=== PATIENT | male | born 1945 | race Caucasian/White ===

== ENCOUNTER 2017-08-15 08:21 | Day surgery (SDC) | payer MEDICARE, BC ==
[2017-08-09 15:55] VITALS: BMI 31.3
[~2017-08-15 08:21] MED LIST: MOXIFLOXACIN HCL 0.5% DROPS 3 ML BTL OP ONE; TETRACAINE 0.5% OPHTH (PF) DROPS 4 ML BTL OP ONE; TIMOLOL 0.5% OPHTH SOLN (PF) 0.2 ML DROPERETTE OP ONE
[2017-08-15] MEDS: PHENYLEPHRINE 2.5% OPHTH DRP 2ML OP NR ×3 (08:55→09:08)
[2017-08-15] MEDS: CYCLOPENTOLATE 1% OPHTH SOLN 2 ML BTL OP ONE ×3 (08:58→09:11)
[2017-08-15 09:19] LABS: Glucose,Whole Blood 118 mg/dL (75-99)
[2017-08-15 09:20] VITALS: RESP 16; TEMP 97.9
[2017-08-15] MEDS ORDERED: LIDOCAINE 1% 20 ML VIAL (10MG/ML) FOR IV START INTRADERMA ONE (09:20)
[2017-08-15] MEDS: LACTATED RINGERS 1,000 ML IV SCH ×2 (09:20→10:04)
[2017-08-15] MEDS ORDERED: fentaNYL (PF) 50 MCG/ML 2 ML AMP ONE (10:06)
[2017-08-15] MEDS ORDERED: EPINEPHrine (PF) 0.3 ML in BALANCED SALT IRRIG SOLN COMB2 500 ML IRRIGATION ONE (10:07)
[2017-08-15] MEDS ORDERED: LIDOCAINE 1% (PF) 10MG/ML VIAL MISCELLANE ONE (10:16)
[2017-08-15] MEDS ORDERED: HYALURONATE SODIUM INTRAOCULAR 1 EACH SYRINGE (12MG/ML) INTRAOCULA ONE (10:16)
[2017-08-15] MEDS ORDERED: BALANCED SALT IRRIG SOLN COMB2 15 ML IRRIG.SOLN IRRIGATION ONE (10:16)
--- NOTE | 2017-08-15 10:32 | P.OP ---
Date of Procedure: 08/15/17 Preoperative Diagnosis: NS & CS Postoperative Diagnosis: same Procedure(s) Performed: PIOL, OS Implants: PCB00 26.50 Anesthesia: MAC Surgeon: Carlos Celeste Estimated Blood Loss (ml): 0 Pathology: none sent Condition: stable Disposition: same day Indications for Procedure: blurry vision Operative Findings: No complications
[2017-08-15 10:57] VITALS: BP 142/62; PULSE 56
--- NOTE | 2017-08-16 11:50 | OP ---
OPERATIVE REPORT DATE OF SURGERY: August 15, 2017 BILINGUAL OFFICE ASSISTANT:: PREOPERATIVE DIAGNOSES:: Nuclear sclerosis and cortical sclerosis. POSTOPERATIVE DIAGNOSES:: Nuclear sclerosis and cortical sclerosis OPERATION:: Phacoemulsification of cataract and intraocular lens implant of the left eye. ESTIMATED BLOOD LOSS:: Zero. SPECIMEN TAKEN:: None. NARRATIVE:: After obtaining the appropriate consent, the patient was brought to the Operating Room where the patient was placed under cardiac monitoring and prepped and draped in the usual sterile manner. At the 5 o'clock position a 15 degree super sharp blade was used to create a paracentesis followed by instillation of 1% Xylocaine MPF 50:50 mix with BSS into the anterior chamber. This was followed by Amvisc to stabilize the anterior chamber. At the 3 o'clock position a self-sealing corneal flap incision was created using 2.8 mm angle keratome. A cystatome was used to initiate a continuous tear capsulorrhexis which was completed with the Utrata forceps. A Binkhorst cannula was used to hydrodissect the lens nucleus followed by hydrodelineation. Phacoemulsification of the lens was performed utilizing phacochop in 11.09 seconds at 4.98% power. The remaining cortical material was removed using the irrigation aspiration mode followed by additional 1% Xylocaine MPF into the anterior chamber followed by viscoelastic to stabilize the capsular bag. An CANDIDO PCB00 26.5 diopters posterior chamber lens was placed into the capsular bag without difficulty. The remaining viscoelastic material was removed from the anterior chamber with the irrigation/aspiration. Balanced salt solution was used to normalize the intraocular pressure. The incision was checked for watertight integrity. The patient then received two drops of 0.5% timolol followed by two drops Vigamox, was lightly patched and shielded in the usual manner. There were no complications from the procedure. The patient tolerated the procedure well and was returned to recovery in good condition. MMODL / IJN: [id number] /
== END 2017-08-15 11:19 | disposition home or self-care (01) ==
LOC: OR 08:21
PROVIDERS: ATTEND Ophthalmology
DX: H25.13 Age-related nuclear cataract, bilateral (principal); H25.013 Cortical age-related cataract, bilateral; H35.3132 Nonexudative age-related macular degeneration, bilateral, intermediate dry stage; H04.129 Dry eye syndrome of unspecified lacrimal gland; H53.022 Refractive amblyopia, left eye; H52.03 Hypermetropia, bilateral; H52.223 Regular astigmatism, bilateral; H52.4 Presbyopia; E11.9 Type 2 diabetes mellitus without complications; I48.91 Unspecified atrial fibrillation; E07.9 Disorder of thyroid, unspecified; I10 Essential (primary) hypertension; K21.9 Gastro-esophageal reflux disease without esophagitis; Z85.72 Personal history of non-Hodgkin lymphomas; Z79.01 Long term (current) use of anticoagulants; Z79.84 Long term (current) use of oral hypoglycemic drugs; Z79.899 Other long term (current) drug therapy
CPT/HCPCS: 66984; C1780; J0171; J3010; J2001

== ENCOUNTER 2017-09-05 09:58 | Day surgery (SDC) | payer MEDICARE, BC ==
[2017-08-28 11:59] VITALS: BMI 31.3
[~2017-09-05 09:58] MED LIST changes: +LACTATED RINGERS 1,000 ML IV SCH; +LIDOCAINE 1% 20 ML VIAL (10MG/ML) FOR IV START INTRADERMA PRN
[2017-09-05] MEDS: CYCLOPENTOLATE 1% OPHTH SOLN 2 ML BTL OP ONE ×3 (11:53→12:15)
[2017-09-05 11:56] VITALS: RESP 18; TEMP 97.9
[2017-09-05] MEDS: PHENYLEPHRINE 2.5% OPHTH DRP 2ML OP NR ×3 (11:58→12:21)
[2017-09-05 12:17] LABS: Glucose,Whole Blood 115 mg/dL (75-99)
[2017-09-05] MEDS ORDERED: fentaNYL (PF) 50 MCG/ML 2 ML AMP ONE (12:59)
[2017-09-05] MEDS ORDERED: MIDAZOLAM 2 MG/2 ML VIAL ONE (12:59)
[2017-09-05] MEDS ORDERED: HYALURONATE SODIUM INTRAOCULAR 1 EACH SYRINGE (12MG/ML) INTRAOCULA ONE (13:05)
[2017-09-05] MEDS ORDERED: BALANCED SALT IRRIG SOLN COMB2 15 ML IRRIG.SOLN INTRAOCULA ONE (13:05)
[2017-09-05] MEDS ORDERED: LIDOCAINE 1% (PF) 10MG/ML VIAL SQ ONE (13:06)
[2017-09-05] MEDS ORDERED: EPINEPHrine (PF) 0.3 ML in BALANCED SALT IRRIG SOLN COMB2 500 ML IRRIGATION ONE (13:08)
--- NOTE | 2017-09-05 13:27 | P.OP ---
Date of Procedure: 09/05/17 Preoperative Diagnosis: NS & CS Postoperative Diagnosis: same Procedure(s) Performed: PIOL, OD Implants: PCB00 25.50 Anesthesia: MAC Surgeon: Carlos Celeste Estimated Blood Loss (ml): 0 Pathology: none sent Condition: stable Disposition: same day Indications for Procedure: blurry vision Operative Findings: no complications
--- NOTE | 2017-09-05 13:54 | OP ---
OPERATIVE REPORT DATE OF SERVICE: 09/05/2017. PROCEDURE: Phacoemulsification of cataract and intraocular lens implant of the right eye. PREOPERATIVE DIAGNOSIS: Nuclear sclerosis, cortical sclerosis. POSTOPERATIVE DIAGNOSIS: Nuclear sclerosis, cortical sclerosis. ESTIMATED BLOOD LOSS: Zero. SPECIMEN TAKEN:: None. NARRATIVE:: After obtaining the appropriate consent, the patient was brought to the Operating Room where the patient was placed under cardiac monitoring and prepped and draped in the usual sterile manner. At the 11 o'clock position a 15 degree super sharp blade was used to create a paracentesis followed by instillation of 1% Xylocaine MPF 50:50 mix with BSS into the anterior chamber. This was followed by to stabilize the anterior chamber. At the 9 o'clock position a self-sealing corneal flap incision was created using 2.8 mm angle keratome. A cystatome was used to initiate a continuous tear capsulorrhexis which was completed with the Utrata forceps. A Binkhorst cannula was used to hydrodissect the lens nucleus followed by hydrodelineation. Phacoemulsification of the lens was performed utilizing phacochop in 15.5 seconds at 9% power. The remaining cortical material was removed using the irrigation aspiration mode followed by additional 1% Xylocaine MPF into the anterior chamber followed by viscoelastic Amvisc to stabilize the capsular bag. An CANDIDO PCB 0025.5 Diopter posterior chamber lens was placed into the capsular bag without difficulty. The remaining viscoelastic material was removed from the anterior chamber with the irrigation/aspiration. Balanced salt solution was used to normalize the intraocular pressure. The incision was checked for watertight integrity. The patient then received two drops of 0.5% timolol followed by two drops Vigamox, was lightly patched and shielded in the usual manner. There were no complications from the procedure. The patient tolerated the procedure well and was returned to recovery in good condition. MMODL / IJN: [id number] /
[2017-09-05 14:01] VITALS: BP 160/72; PULSE 41
== END 2017-09-05 14:30 | disposition home or self-care (01) ==
LOC: OR 09:58
PROVIDERS: ATTEND Ophthalmology
DX: H25.11 Age-related nuclear cataract, right eye (principal); H35.3132 Nonexudative age-related macular degeneration, bilateral, intermediate dry stage; H52.32 Aniseikonia; H25.011 Cortical age-related cataract, right eye; H04.129 Dry eye syndrome of unspecified lacrimal gland; H53.022 Refractive amblyopia, left eye; H52.03 Hypermetropia, bilateral; H52.223 Regular astigmatism, bilateral; H52.4 Presbyopia; K21.9 Gastro-esophageal reflux disease without esophagitis; I10 Essential (primary) hypertension; I48.91 Unspecified atrial fibrillation; E78.5 Hyperlipidemia, unspecified; E11.9 Type 2 diabetes mellitus without complications; E07.9 Disorder of thyroid, unspecified; Z96.1 Presence of intraocular lens; Z79.01 Long term (current) use of anticoagulants; Z79.84 Long term (current) use of oral hypoglycemic drugs; Z79.899 Other long term (current) drug therapy; Z85.72 Personal history of non-Hodgkin lymphomas
CPT/HCPCS: 66984; C1780; J2250; J0171; J3010; J2001

== ENCOUNTER → 2017-10-29 | Day surgery (SDC) | payer MEDICARE, BC ==
[2017-10-25 10:11] VITALS: BMI 31.3
[~2017-10-29] MED LIST changes: +LIDOCAINE 1% 20 ML VIAL (10MG/ML) FOR IV START INTRADERMA ONE; -LIDOCAINE 1% 20 ML VIAL (10MG/ML) FOR IV START INTRADERMA PRN; -MOXIFLOXACIN HCL 0.5% DROPS 3 ML BTL OP ONE; +PROPOFOL 10 MG/ML 20 ML VIAL IV ONE; -TETRACAINE 0.5% OPHTH (PF) DROPS 4 ML BTL OP ONE; -TIMOLOL 0.5% OPHTH SOLN (PF) 0.2 ML DROPERETTE OP ONE
[2017-10-29 07:54] VITALS: RESP 16; TEMP 97.9
[2017-10-29 08:07] LABS: Glucose,Whole Blood 104 mg/dL (75-99)
--- NOTE | 2017-10-29 09:13 | P.PCN ---
Date of Procedure: 10/29/17 Procedure(s) Performed: Procedure: Esophagogastroduodenoscopy and biopsy. Preoperative diagnosis: Chronic reflux and history of Dobbs's esophagus. Postoperative diagnosis: 1. Sliding hiatal hernia and short Dobbs's segment multiple biopsies obtained to rule out dysplasia. 2. Gastritis with no obvious ulcers or any endoscopic findings of his previously treated B-cell lymphoma. Preparation and sedation: Was provided by anesthesia. Brief clinical history: The patient is a 71-year-old male who was diagnosed in April 2011 with B-cell lymphoma for which he was treated with radiation and chemotherapy. At that time, he had ulcerations at the junction between the antrum and the gastric body. In addition, the patient has history of Dobbs's esophagus and his last upper endoscopy for surveillance was in October 2015. He continues to take omeprazole with occasional heartburns. No dysphagia or other alarm symptoms. Procedure: With the patient on his left lateral decubitus position and after informed consent and adequate sedation, I passed the Olympus-GIF 160 video upper endoscope through the cricopharyngeus down the esophagus. GE junction was irregular and it started at around 29-30 cm from the incisors. The tubular esophagus continued for another 3 or 4 cm, then a sliding hiatal hernia is encountered as previously described. The esophagus did not show any ulcers or strictures. The endoscope was then passed into the stomach which was insufflated with air and inspected in detail including the retroflex view in the cardia. There was mottling and erythema and some areas of friability in the antrum but no ulcers. Specifically, the area where he had ulcerations at the time of his diagnosis with lymphoma at the junction between the antrum and gastric body did not show any ulcers. I obtained multiple biopsies from the antrum as well as from from the Dobbs's esophagus. Pyloric channel, duodenal bulb, post bulbar area and descending duodenum appeared within normal limits. Disposition: The patient tolerated the procedure well. Plan: We will await pathology results. I anticipate repeating this exam in 2 years or sooner depending on his course and biopsy results. He will follow up with you as planned.
[2017-10-29 09:29] VITALS: BP 134/74; PULSE 43
== END ==
LOC: ORWHC2ENDO 07:13
DX: K22.711 Barrett's esophagus with high grade dysplasia (principal); K44.9 Diaphragmatic hernia without obstruction or gangrene; K29.70 Gastritis, unspecified, without bleeding; K21.9 Gastro-esophageal reflux disease without esophagitis; Z85.72 Personal history of non-Hodgkin lymphomas; Z92.3 Personal history of irradiation; I10 Essential (primary) hypertension; E78.5 Hyperlipidemia, unspecified; I48.91 Unspecified atrial fibrillation; Z79.01 Long term (current) use of anticoagulants; G47.33 Obstructive sleep apnea (adult) (pediatric); E07.9 Disorder of thyroid, unspecified; E11.9 Type 2 diabetes mellitus without complications; Z79.84 Long term (current) use of oral hypoglycemic drugs; Z79.899 Other long term (current) drug therapy
CPT/HCPCS: 88305; 88342; 43239; J2704

== ENCOUNTER → 2020-12-18 | Outpatient (CLI) | payer MEDICARE ==
--- NOTE | 2020-12-20 06:38 | PE ---
EXAMINATION TYPE: PET CT fusion skull to thigh DATE OF EXAM: 12/18/2020 COMPARISON: NONE HISTORY: Recently diagnosed esophageal carcinoma. History of non-Hodgkin's lymphoma. TECHNIQUE: Following the intravenous administration of 13.91 mCi of F-18 FDG, whole body images are performed from the skull base to the midthigh. Images are reviewed on the computer in the coronal, a xial, and sagittal planes. Reconstructed rotating images are created on independent workstation and reviewed on the computer. A localization and attenuation correction CT is performed in conjunction with the PET scan. Blood glucose level was 135. SCAN: Initial Scan FINDINGS: SKULL BASE AND NECK: No suspicious hypermetabolic uptake. CHEST, MEDIASTINUM, AND HILAR REGION: Normal-sized thyroid with mild diffuse uptake. There is roughly 9 mm lower pole left thyroid nodule suspected on axial image 60 with mild hypermetabolic uptake, max SUV 3.26. Mild hypermetabolic uptake corresponding to prominent lymph nodes in the anterior superior mediastinum just below the thyroid gland, for reference there is right paratracheal 1.3 x 1.2 cm lym ph node axial image 63, max SUV is 5.28. For reference there is left paratracheal 10 x 9 mm lymph nod e axial image 67, max SUV is 4.68. Correlation with patient's history there is abnormal moderate concentric wall thickening in the esoph murphy, max SUV is 10.87 on axial image 92. Moderate-sized hiatal hernia is present. ABDOMEN AND PELVIS: Nonspecific diffuse bowel uptake. Normal excretion. No suspicious hypermetabolic uptake. OSSEOUS STRUCTURES: No suspicious hypermetabolic uptake. OTHER CT: Sqep-hh-fybakamy calcified plaque bilateral carotid bulb level. Severe three-vessel coronar y artery calcification and/or stents. Small degree of bilateral subareolar gynecomastia. Calcifications throughout the spleen consistent with products of old granulomatous disease. Moderate generalized fat replaced atrophy of the pancreas. Moderate calcified plaque of the aorta. Moderate to severe anterior eccentric wall thickening of the bladder. Enlarged prostate consistent with BPH. IMPRESSION: Known distal esophageal neoplasm. Possible lower pole left thyroid nodule with suspicious adjacent adenopathy. Clinical correlation and follow-up advised. Consider second primary. No metasta tic disease otherwise identified.
== END ==
LOC: RADPETMAIN 08:04
PROVIDERS: ATTEND Internal Medicine Hematology & Oncology
DX: C15.5 Malignant neoplasm of lower third of esophagus (principal); Z85.72 Personal history of non-Hodgkin lymphomas
CPT/HCPCS: 78815; A9552

== ENCOUNTER 2020-12-29 12:32 | Day surgery (SDC) | payer MEDICARE ==
[2020-12-29 13:35] LABS: Mean Platelet Volume 7.5; Platelet Count 317 k/uL (150-450)
[2020-12-29 13:39] VITALS: TEMP 98.2
[2020-12-29 13:40] LABS: Prothrombin Time 10.3 sec (9.0-12.0)
[2020-12-29 15:42] VITALS: BP 138/66; PULSE 71; RESP 18
--- NOTE | 2020-12-30 12:24 | US ---
ULTRASOUND GUIDED FNA AND CORE BIOPSY LEFT NECK LYMPH NODE: CLINICAL HISTORY: Left neck lymph node FINDINGS: The procedure was explained to the patient. The risks, complications, benefits and alternatives were discussed and any questions were answered. Informed consent was obtained. Patient was placed supin e on the ultrasound table and prepped and draped in the usual sterile fashion. Utilizing a 25 gauge needle, 3 passes were made into the left neck lymph node. An 18-gauge core biopsy sample was also ob tained. Patient was stable throughout the procedure. Pathology is pending. All elements of maximal barrier technique were utilized. IMPRESSION: 1. Successful ultrasound guided FNA and core biopsy left neck lymph node\mass.
--- NOTE | 2020-12-30 12:26 | CT ---
EXAMINATION TYPE: CT biopsy lymph node DATE OF EXAM: 12/29/2020 COMPARISON: NONE HISTORY: Left neck mass CT scan was obtained to attempt to get an additional sample of the requested mass within the left nec k lymph node. The lesion was not as well seen by CT scan and attempt was discontinued. IMPRESSION: 1. Discontinued CT-guided left neck lymph node biopsy.
== END 2020-12-29 15:35 | disposition home or self-care (01) ==
LOC: RADPROMAIN 12:32
PROVIDERS: ATTEND Internal Medicine Hematology & Oncology
DX: C15.5 Malignant neoplasm of lower third of esophagus (principal); C85.90 Non-Hodgkin lymphoma, unspecified, unspecified site
CPT/HCPCS: 36415; 38505; 76942; 77012; 82947; 85049; 85610; 88173; 88305

== ENCOUNTER 2021-03-10 17:16 | Emergency (ER) | payer MEDICARE ==
[2021-03-10 17:42] VITALS: BP 123/68; PULSE 69; RESP 16; TEMP 98.4
[2021-03-10 20:58] LABS: INR 1.9 (<1.2)
[2021-03-10 20:59] LABS: Prothrombin Time 18.8 sec (9.0-12.0)
--- NOTE | 2021-03-10 21:01 | US ---
EXAMINATION TYPE: US venous doppler duplex LE LT DATE OF EXAM: 03/10/2021 8:54 PM COMPARISON: NONE CLINICAL HISTORY: Left leg swelling/dx cancer. Left leg swelling. DX esophageal cancer- on chemo. Pat ient on coumadin. No hx of DVT. SIDE PERFORMED: Left TECHNIQUE: The lower extremity deep venous system is examined utilizing real time linear array sonog niru with graded compression, doppler sonography and color-flow sonography. VESSELS IMAGED: Common Femoral Vein Deep Femoral Vein Greater Saphenous Vein * Femoral Vein Popliteal Vein Small Saphenous Vein * Proximal Calf Veins (* superficial vessels) There is normal flow, compressibility, waveforms noted within the deep veins of the left lower extrem ity from the level of the knee centrally Left Leg: No evidence of DVT in veins imaged at this time. IMPRESSION: No evident deep venous thrombosis at the level of the knee or central to the left knee
--- NOTE | 2021-03-10 21:15 | ED ---
General Adult HPI - General Chief complaint: Extremity Problem,Nontraumatic Stated complaint: Lt Foot/Ankle Swelling Time Seen by Provider: 03/10/21 19:30 Source: patient Mode of arrival: ambulatory Limitations: no limitations - History of Present Illness Initial comments: 75-year-old male patient presents to the emergency department today for evaluation of left lower leg and foot swelling. Patient did see his primary doctor today they were concerned for possible blood clots they sent him in for further evaluation. Patient is currently receiving treatment for esophageal cancer including chemotherapy. He does take Coumadin, he did recently have a dosage decrease. Last INR was 2 weeks ago. Patient denies any pain to the leg. States he is able to ambulate without difficulty. Denies any redness to the calf. Denies fever or chills. Denies any chest pain or shortness of breath. Patient denies any recent rash, cough, abdominal pain, nausea, vomiting, diarrhea, constipation, back pain, numbness, tingling, dizziness, weakness, hematuria, dysuria, urinary urgency, urinary frequency, headache, visual changes, or any other complaints. - Related Data Home Medications Medication Instructions Recorded Confirmed Artificial Tears-Hypromellose 1 drop BOTH EYES BID 10/29/15 12/29/20 [Artificial Tear Drops] Levothyroxine Sodium [Synthroid] 112 mcg PO QAM 10/29/15 12/29/20 Lovastatin 20 mg PO HS 10/29/15 12/29/20 Metoprolol Succinate [Toprol XL] 12.5 mg PO QAM 10/29/15 12/29/20 Omeprazole 20 mg PO QAM 10/29/15 12/29/20 amLODIPine [Norvasc] 10 mg PO QAM 10/29/15 12/29/20 lisinopriL [Lisinopril] 20 mg PO DAILY 10/29/15 12/29/20 metFORMIN HCL [Glucophage] 850 mg PO BID 10/29/15 12/29/20 Ascorbic Acid [Vitamin C] 1,000 mg PO DAILY 12/21/20 12/29/20 Empagliflozin [Jardiance] 12.5 mg PO DAILY 12/21/20 12/29/20 Ergocalciferol [Vitamin D2 (1250 1.25 mg PO DAILY 12/21/20 12/29/20 Mcg = 54218 Iu)] Insulin Lispro [humaLOG Kwikpen] 1 unit SQ DAILY 12/21/20 12/29/20 Magnesium 500 mg PO DAILY 12/21/20 12/29/20 Selenium 100 mcg PO DAILY 12/21/20 12/29/20 Warfarin [Coumadin] 10 mg PO HS 12/21/20 12/29/20 Zinc Gluconate [Zinc] 50 mg PO DAILY 12/21/20 12/29/20 Allergies Allergy/AdvReac Type Severity Reaction Status Date / Time No Known Allergies Allergy Verified 03/10/21 17:42 Review of Systems ROS Statement: Those systems with pertinent positive or pertinent negative responses have been documented in the HPI. ROS Other: All systems not noted in ROS Statement are negative. Past Medical History Past Medical History: Atrial Fibrillation, Cancer, Diabetes Mellitus, GERD/Reflux, Hyperlipidemia, Hypertension, Sleep Apnea/CPAP/BIPAP, Thyroid Disorder Additional Past Medical History / Comment(s): does not use cpap. SOB. LYMPHOMA (STOMACH)2010-RADIATION & CHEMO. HIATAL HERNIA. DALEY'S ESOPHAGUS, esophagus, History of Any Multi-Drug Resistant Organisms: None Reported Past Surgical History: Appendectomy Additional Past Surgical History / Comment(s): efra. cataract surgery, EGD's Past Anesthesia/Blood Transfusion Reactions: No Reported Reaction Past Psychological History: No Psychological Hx Reported Smoking Status: Unknown if ever smoked Past Alcohol Use History: None Reported Past Drug Use History: None Reported - Past Family History Mother Family Medical History: No Reported History Father Family Medical History: Cancer Additional Family Medical History / Comment(s): lung Brother(s) Family Medical History: Myocardial Infarction ([place]) Additional Family Medical History / Comment(s): at age 49. General Exam Limitations: no limitations General appearance: alert, in no apparent distress, other (Physical well- developed, well-nourished adult male patient in no acute distress. Vital signs upon presentation temperature 98.4F, pulse 69, respirations 16, blood pressure 123/68, pulse ox 99% on room air.) ENT exam: Present: normal exam, normal oropharynx, mucous membranes moist Respiratory exam: Present: normal lung sounds bilaterally. Absent: respiratory distress, wheezes, rales, rhonchi, stridor Cardiovascular Exam: Present: regular rate, normal rhythm, normal heart sounds. Absent: systolic murmur, diastolic murmur, rubs, gallop, clicks GI/Abdominal exam: Present: soft, normal bowel sounds. Absent: distended, tenderness, guarding, rebound, rigid Extremities exam: Present: normal inspection, full ROM, normal capillary refill, other (There is 2+ pitting edema to the left ankle and foot, 1+ pitting edema to the right ankle and foot. No calf tenderness or redness. Skin is otherwise pink, warm, dry. Cap refill less than 3 seconds. Pedal and posttibial pulses are 2+.). Absent: tenderness, pedal edema, joint swelling, calf tenderness Neurological exam: Present: alert, oriented X3, CN II-XII intact Psychiatric exam: Present: normal affect, normal mood Skin exam: Present: warm, dry, intact, normal color. Absent: rash Course Vital Signs 03/10/21 17:39 Temperature 98.4 F Pulse Rate 69 Respiratory 16 Rate Blood Pressure 123/68 O2 Sat by Pulse 99 Oximetry Medical Decision Making - Medical Decision Making 75-year-old male patient presented to the emergency department today for evaluation of left lower leg and foot swelling. Physical examination did reveal 2+ pitting edema to the left ankle and foot, 1+ pitting edema to the right ankle and foot. Ultrasound was obtained of the left leg which was negative. Patient is not having any pain. No shortness of breath. Vital signs are within normal ranges. He'll be discharged follow up with his primary care physician for recheck in 1-2 days. He is instructed to keep legs elevated. Return parameters were discussed in detail. He verbalizes understanding and agrees with this plan. Case discussed with my attending Dr. Mason. - Lab Data Lab Results 03/10/21 Range/Units 20:08 PT 18.8 H (9.0-12.0) sec INR 1.9 H (<1.2) - Radiology Data Radiology results: report reviewed, image reviewed Ultrasound the left lower extremities was obtained. Report was reviewed in its entirety. Impression by Dr. Dial shows no evident deep vein thrombosis at the level of the knee or central to the left knee. Disposition Clinical Impression: Lower extremity edema Disposition: HOME SELF-CARE Condition: Good Instructions (If sedation given, give patient instructions): Leg Edema (ED) Additional Instructions: Keep legs elevated. Follow-up with primary care physician for recheck in 1-2 days. Return to the emergency department for any new, worsening, or concerning symptoms. Is patient prescribed a controlled substance at d/c from ED?: No Referrals: Dede House MD [Primary Care Provider] - 1-2 days Time of Disposition: 21:15
== END 2021-03-10 21:24 | disposition home or self-care (01) ==
LOC: EC 17:16
DX: R60.0 Localized edema (principal); I10 Essential (primary) hypertension; I48.91 Unspecified atrial fibrillation; E11.9 Type 2 diabetes mellitus without complications; K21.9 Gastro-esophageal reflux disease without esophagitis; E78.5 Hyperlipidemia, unspecified; G47.30 Sleep apnea, unspecified; Z79.01 Long term (current) use of anticoagulants; Z79.84 Long term (current) use of oral hypoglycemic drugs
CPT/HCPCS: 36415; 85610; 99284

== ENCOUNTER → 2021-04-08 | Outpatient (CLI) | payer MEDICARE ==
--- NOTE | 2021-04-12 10:36 | PE ---
Nuclear medicine PET/CT HISTORY: C15.5 Esophageal Cancer, subsequent, C85.98 Lymphoma Patient received 11.4 mCi F-18 FDG intravenously in delayed scanning was performed from the skull bas e to the mid thighs. Localization and attenuation correction CT scan was performed. Correlation to prior nuclear medicine PET/CT 12/18/2020 Chest and neck: There is no cervical adenopathy. The previously identified hypermetabolic uptake, daniela nopathy in the superior mediastinum is improved. The focus of hypermetabolic uptake, abnormal soft ti ssue swelling the level of the distal esophagus is also improved. No suspicious residual uptake ident ified. There are coronary artery calcifications present. Right lobe thyroid shows mild elevation in u ptake, SUV 2.7 ABDOMEN: There is no evident liver mass, no retroperitoneal adenopathy. There is no ascites. Uptake a long the bowel is likely physiologic. Hiatal hernia with partial intrathoracic stomach is again seen. Calcifications within the spleen and liver likely due to old granulomatous disease. Urinary bladder shows a thickened wall. Prostate calcifications are present. Prostate is not enlarged. No pelvic bautista opathy evident. Osseous structures show no suspicious uptake. IMPRESSION: There is interval improvement in mediastinal adenopathy, soft tissue mass, associated hyp ermetabolic uptake. Indeterminate urinary bladder wall thickening, correlate for cystitis, possible c hronic bladder outlet obstruction. Uptake noted in the thyroid.
== END | disposition home or self-care (01) ==
LOC: RADPETMAIN 08:14
PROVIDERS: ATTEND Internal Medicine Hematology & Oncology
DX: C15.5 Malignant neoplasm of lower third of esophagus (principal); C85.98 Non-Hodgkin lymphoma, unspecified, lymph nodes of multiple sites; R59.0 Localized enlarged lymph nodes; N32.89 Other specified disorders of bladder
CPT/HCPCS: 78815; A9552

== ENCOUNTER → 2021-05-16 | Outpatient (CLI) | payer MEDICARE | END | disposition home or self-care (01) | LOC: LABWHC1 15:58 | PROVIDERS: ATTEND Physician Assistant | DX: Z01.812 Encounter for preprocedural laboratory examination (principal); Z20.822 Contact with and (suspected) exposure to COVID-19 | CPT/HCPCS: U0003; C9803 ==

== ENCOUNTER → 2021-05-30 | Outpatient (CLI) | payer MEDICARE | END | disposition home or self-care (01) | LOC: LABWHC1 12:14 | PROVIDERS: ATTEND Physician Assistant Medical | DX: Z01.812 Encounter for preprocedural laboratory examination (principal); Z20.822 Contact with and (suspected) exposure to COVID-19 | CPT/HCPCS: U0003; C9803; U0005 ==

== ENCOUNTER → 2021-12-09 | Outpatient (CLI) | payer MEDICARE ==
--- NOTE | 2021-12-13 11:28 | PE ---
Nuclear medicine PET/CT HISTORY: C 15.5, esophageal carcinoma, subsequent Patient received 10.5 mCi F-18 FDG intravenously and delayed scanning was performed from the skull ba se to the mid thighs. A localization and attenuation correction CT scan was performed. Correlation to prior nuclear medicine PET/CT 04/08/2021 Average mediastinal uptake SUV is 1.6, average liver uptake SUV is 2.3 Chest and neck: Patient shows esophagectomy and gastric pull-through change. There is no cervical daniela nopathy. Right thyroid gland shows some increased uptake similar to prior exam, SUV 2.8. There is upt vanessa identified at the level of the transverse aorta within the gastric pull-through, possibly localiz ed to the mucosa, indeterminate, SUV 3.1. There is no pleural or pericardial effusion. Hiatal hernia is present containing bowel and fat. There are extensive coronary artery calcifications. No mediastin al, axillary, or hilar adenopathy is evident. No evident lung mass. There is a port in the right pect oral region coursing via jugular approach, distal tip within the upper chest, central aspect of the j ugular vein. There is evidence of old granulomatous disease. ABDOMEN: There is no evident liver mass or ascites. No retroperitoneal adenopathy. Adrenal glands are symmetric. Retrocrural node is noted on the left with associated uptake, SUV is 2.4, retrocrural nod e on the right at the level of the kidneys is not enlarged and shows SUV 2.5. Atheromatous changes present within the aorta. Osseous structures show no suspicious uptake. IMPRESSION: There are foci of indeterminate uptake which have developed in the interval in the retroc [place] regions. Abnormal thyroid uptake again seen. Uptake along the gastric pull-through as described .
== END | disposition home or self-care (01) ==
LOC: RADXRMAIN 13:17
PROVIDERS: ATTEND Internal Medicine Hematology & Oncology
DX: C15.5 Malignant neoplasm of lower third of esophagus (principal); R94.6 Abnormal results of thyroid function studies
CPT/HCPCS: 78815; A9552

== ENCOUNTER 2022-02-01 07:23 | Day surgery (SDC) | payer MEDICARE ==
[2022-01-31 08:58] VITALS: BMI 25.8
[~2022-02-01 07:23] MED LIST changes: +LIDOCAINE 1% (10MG/ML) FOR IV START INTRADERMA PRN; -LIDOCAINE 1% 20 ML VIAL (10MG/ML) FOR IV START INTRADERMA ONE; -PROPOFOL 10 MG/ML 20 ML VIAL IV ONE
[2022-02-01 08:12] LABS: Glucose,Whole Blood 130 mg/dL (75-99)
[2022-02-01 08:13] VITALS: TEMP 97.3
[2022-02-01] MEDS ORDERED: LIDOCAINE 2% INJ 20 MG/ML (2 ML VIAL) ONE (08:56)
[2022-02-01] MEDS ORDERED: PROPOFOL 10 MG/ML 20 ML VIAL IV ONE (08:56)
--- NOTE | 2022-02-01 09:10 | P.PCN ---
Date of Procedure: 02/01/22 Procedure(s) Performed: BRIEF HISTORY: Patient is a 76-year-old, pleasant, white male scheduled for an upper endoscopy as a part of surveillance of esophageal cancer rectum was diagnosed in May 2021. He had neoadjuvant chemo followed by surgery. He is currently undergoing chemotherapy. He underwent distal esophagectomy with gastric pull-through last year.. 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 IV sedation per anesthesia. PROCEDURE: After informed consent was obtained, the patient was brought into the endoscopy unit. IV sedation was administered by Anesthesia under continuous monitoring. Initially the Olympus GIF-140 video endoscope was inserted into the mouth. Esophagus intubated without any difficulty. It was gradually advanced into the proximal esophagus and there was a stricture noted at the anastomosis located at 25 cm from the incisors. I could not advance the scope beyond the stricture and hence balloon dilation was performed using 10-12 mm balloon sequential fashion for 30 seconds. Following this with gentle pressure I was able to advance the scope into the stomach and duodenum. Bulb and second part of the duodenum appeared normal. Scope was then withdrawn into the stomach adequately insufflated with air and there was retained food in the stomach suggestive of gastroparesis., mucosa of the antrum, body, appeared normal.. The scope was then withdrawn into the esophagus. The anastomosis was located at 25 cm from the incisors. Some oozing noted at the site of dilation. His were done at the site of anastomosis. No evidence of recurrence noted at the anastomosis. The rest of the esophagus appeared normal. The patient tolerated the procedure well. IMPRESSION: 1. Stricture at the esophagogastric anastomosis at 25 cm from the incisors status post balloon dilation using 10-12 mm TTS balloon as described above. 2. Mild erythema of the anastomosis status post biopsy 3. Retained food in the stomach suggestive of gastroparesis. RECOMMENDATIONS: The findings of this examination were discussed with the patient as well as his family.. He will be on a clear liquid diet for lunch today. Advance diet as tolerated. Start on Prilosec 20 mg daily.
[2022-02-01 09:31] VITALS: BP 146/68; PULSE 59; RESP 16
[2022-02-01 09:33] LABS: Glucose,Whole Blood 124 mg/dL (75-99)
== END 2022-02-01 10:26 | disposition home or self-care (01) ==
LOC: ORWHC2ENDO 07:23
PROVIDERS: ATTEND Internal Medicine Gastroenterology
DX: K22.70 Barrett's esophagus without dysplasia (principal); K22.2 Esophageal obstruction; C15.9 Malignant neoplasm of esophagus, unspecified; I10 Essential (primary) hypertension; I48.91 Unspecified atrial fibrillation; J44.9 Chronic obstructive pulmonary disease, unspecified; E11.9 Type 2 diabetes mellitus without complications; E07.9 Disorder of thyroid, unspecified; M19.90 Unspecified osteoarthritis, unspecified site; Z79.01 Long term (current) use of anticoagulants; Z79.890 Hormone replacement therapy; Z79.4 Long term (current) use of insulin; Z79.899 Other long term (current) drug therapy
CPT/HCPCS: 88305; 88312; 43239; 43249; J2704; J2001; C1726

== ENCOUNTER → 2022-03-24 | Outpatient (CLI) | payer MEDICARE ==
--- NOTE | 2022-03-27 10:45 | PE ---
Nuclear medicine PET/CT HISTORY: Esophageal carcinoma, C 15.5, subsequent Patient received 11 mCi F-18 FDG intravenously and delayed scanning was performed in the skull base t o the mid thighs. A localization and attenuation correction CT was performed. Correlation to prior nuclear medicine PET/CT 12/09/2021 Average mediastinal uptake SUV 0.2, average liver uptake SUV 2.8 Chest and neck: There is no cervical adenopathy or supraclavicular adenopathy. Right lobe of the thyr oid shows a focus of hypermetabolic uptake, SUV 3.1, previous abnormal. Patient is status post esophagectomy and gastric pull-through. There is no evident pleural or pericar dial effusion. Atelectatic changes are suspected, there is evidence of old granulomatous disease, pos sible scarring, no evident lung mass or suspicious uptake. The previously identified uptake at the le jarrod of the suture line is no longer evident. Coronary artery calcifications are extensive. ABDOMEN: Retrocrural uptake associated with nodes is no longer seen. There is a large hiatal hernia p resent. No evident liver uptake or retroperitoneal adenopathy. No ascites. No pelvic adenopathy. Osseous structures show no suspicious uptake. IMPRESSION: No suspicious uptake is evident.
== END | disposition home or self-care (01) ==
LOC: RADXRMAIN 12:25
PROVIDERS: ATTEND Internal Medicine Hematology & Oncology
DX: C15.5 Malignant neoplasm of lower third of esophagus (principal)
CPT/HCPCS: 78815; A9552

== ENCOUNTER 2022-08-11 09:46 | Day surgery (SDC) | payer MEDICARE ==
[2022-08-11 10:11] VITALS: BP 137/64; PULSE 74; RESP 16; TEMP 97.7
[2022-08-11 10:12] LABS: Glucose,Whole Blood 134 mg/dL (70-110)
[2022-08-11] MEDS ORDERED: IOPAMIDOL-370 50ML BTL INJ ONE (11:16)
--- NOTE | 2022-08-11 11:32 | IR ---
Fluoroscopic portogram(mediport). HISTORY: Device malfunction. The patient presented to the [facility] with a Cast needle within the port. Preliminary fluoroscopy demonst rated the catheter to be intact. 0.2 minutes of fluoroscopy provided. There is a Mediport catheter which appears to be attached to the port. A small injection of contrast demonstrates extravasation o f contrast at the level of the second rib. Suspect catheter fracture. Referring clinician notified. 0.2 minutes of fluoroscopy used and 114 images submitted. IMPRESSION: 1. Extravasation of contrast at the proximal level of the right second rib suggestive of catheter inj ury or fracture.. Surgical consultation suggested.
== END 2022-08-11 13:03 | disposition home or self-care (01) ==
LOC: CATHCVL 09:46
PROVIDERS: ATTEND Radiology Diagnostic Radiology
DX: T85.618A Breakdown (mechanical) of other specified internal prosthetic devices, implants and grafts, initial encounter (principal)
CPT/HCPCS: 36598; Q9967

== ENCOUNTER → 2022-08-25 | Outpatient (CLI) | payer MEDICARE ==
--- NOTE | 2022-08-25 15:54 | PE ---
EXAMINATION TYPE: PET CT fusion skull to thigh DATE OF EXAM: 08/25/2022 COMPARISON: Prior PET/CT March 24, 2022 and older studies. HISTORY: Esophageal cancer lower one third progress study. Remote history of lymphoma. TECHNIQUE: Following the intravenous administration of 12.48 mCi of F-18 FDG, whole body images are performed from the skull base to the midthigh. Images are reviewed on the computer in the coronal, a xial, and sagittal planes. Reconstructed rotating images are created on independent workstation and reviewed on the computer. A localization and attenuation correction CT is performed in conjunction with the PET scan. Blood glucose level equals 89. SCAN: Subsequent Scan FINDINGS: SKULL BASE AND NECK: No new areas of abnormal hypermetabolic uptake. CHEST, MEDIASTINUM, AND HILAR REGION: Postsurgical changes from total esophagectomy and gastric pull up procedure are redemonstrated. No new areas of abnormal hypermetabolic uptake in the thorax are see n. Large hiatal hernia containing portions of colon and abdominal fat posterior to the heart are rede monstrated. ABDOMEN AND PELVIS: Normal excretion. No suspicious new areas of abnormal hypermetabolic uptake. OSSEOUS STRUCTURES: Mild uptake right greater than left shoulder levels could reflect inflammatory pr ocess, correlate clinically. No suspicious new areas of abnormal hypermetabolic uptake. OTHER CT: Moderate moderate calcified plaque left greater than right bilateral carotid bulb level is redemonstrated. Severe three-vessel coronary artery calcification and/or stents are again seen. Right internal jugular Mediport catheter redemonstrated. Small degree of bilateral subareolar gynecomastia again seen. Calcifications throughout the spleen consistent with products of old granulomatous disease are redemo nstrated. Moderate generalized fat replaced atrophy of the pancreas is again seen. Moderate calcified plaque of the aorta. Small nonobstructing bilateral renal calculi redemonstrated. Moderate to severe anterior eccentric wall thickening of the bladder. Enlarged prostate consistent with BPH. IMPRESSION: No suspicious new areas of abnormal hypermetabolic uptake to suggest active neoplastic re currence.
== END | disposition home or self-care (01) ==
LOC: RADPETMAIN 10:24
PROVIDERS: ATTEND Internal Medicine Hematology & Oncology
DX: C15.5 Malignant neoplasm of lower third of esophagus (principal); Z85.72 Personal history of non-Hodgkin lymphomas
CPT/HCPCS: 78815; A9552

== ENCOUNTER 2022-12-20 08:42 | Day surgery (SDC) | payer MEDICARE ==
[2022-12-14 13:46] VITALS: BMI 25.0
[2022-12-20] MEDS ORDERED: ONDANSETRON 4 MG/2 ML VIAL IVP PRN (09:14)
[2022-12-20] MEDS ORDERED: LIDOCAINE 1% (10MG/ML) FOR IV START INTRADERMA PRN (09:14)
[2022-12-20] MEDS ORDERED: LACTATED RINGERS 1,000 ML IV SCH (09:14)
[2022-12-20 09:26] VITALS: RESP 16; TEMP 97
[2022-12-20 09:26] LABS: Glucose,Whole Blood 99 mg/dL (70-110)
[2022-12-20] MEDS ORDERED: PROPOFOL 10 MG/ML 20 ML VIAL IV ONE (09:57)
[2022-12-20] MEDS ORDERED: LIDOCAINE 2% INJ 20 MG/ML (2 ML VIAL) ONE (09:57)
--- NOTE | 2022-12-20 10:11 | P.PCN ---
Date of Procedure: 12/20/22 Procedure(s) Performed: BRIEF HISTORY: Patient is a 77-year-old, pleasant, white male scheduled for an upper endoscopy as a part of evaluation of intermittent dysphagia to solids. He was diagnosed with esophageal cancer in May 2021 and is status post neoadjuvant chemo/radiation followed by surgery with distal esophagectomy and gastric pull-through. He subsequently developed anastomotic stricture for which she underwent an upper endoscopy with dilation in January 2022. Lately has been having dysphagia to solids as well as passive regurgitation.. PROCEDURE PERFORMED: Esophagogastroduodenoscopy with biopsy and dilation. PREOPERATIVE DIAGNOSIS: Follow-up esophageal cancer diagnosed in 2020/interm ittent dysphagia to solids. IV sedation per anesthesia. PROCEDURE: After informed consent was obtained, the patient was brought into the endoscopy unit. IV sedation was administered by Anesthesia under continuous monitoring. Initially the Olympus GIF-140 video endoscope was inserted into the mouth. Esophagus intubated without any difficulty. It was gradually advanced into the stomach . There was large amount of food in the stomach suggestive of gastroparesis Despite multiple other that was not able to advance the scope The scope at this time was withdrawn to the stomach, adequately insufflated with air, and upon careful examination, mucosa of the antrum, had a 5 mm polyp that was biopsied. There was evidence of previous distal esophagectomy with gastric pull-through noted. The anastomosis was located at 25 cm from the incisors which appears slightly narrow. At this time balloon dilation was performed using 12-15 mm TTS balloon in a sequential fashion for 30 seconds. The proximal esophagus appeared normal and the patient tolerated the procedure well. IMPRESSION: 1. 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 Large amount of retained food in the stomach suggestive of gastroparesis 3. 5 mm antral polyp in the antrum status post biopsy. RECOMMENDATIONS: The findings of this examination were discussed with the patient as well as his family. He was advised to be on a clear liquid diet for lunch today. Recommend small frequent meals. Continue omeprazole 20 mg daily and follow antrum reflux measures..
[2022-12-20 10:52] VITALS: BP 149/80; PULSE 56
== END 2022-12-20 11:15 | disposition home or self-care (01) ==
LOC: ORWHC2ENDO 08:42
PROVIDERS: ATTEND Internal Medicine Gastroenterology
DX: C15.9 Malignant neoplasm of esophagus, unspecified (principal); K31.7 Polyp of stomach and duodenum; I10 Essential (primary) hypertension; I48.91 Unspecified atrial fibrillation; E78.5 Hyperlipidemia, unspecified; G47.33 Obstructive sleep apnea (adult) (pediatric); E11.9 Type 2 diabetes mellitus without complications; E03.9 Hypothyroidism, unspecified; K21.9 Gastro-esophageal reflux disease without esophagitis; Z79.4 Long term (current) use of insulin; Z79.899 Other long term (current) drug therapy; Z79.890 Hormone replacement therapy; Z79.01 Long term (current) use of anticoagulants
CPT/HCPCS: 43239; 43249; J2704; J2001; C1726; 88305; 88342

== ENCOUNTER → 2023-05-18 | Outpatient (CLI) | payer MEDICARE ==
--- NOTE | 2023-05-18 13:27 | PE ---
EXAMINATION TYPE: PET CT fusion skull to thigh DATE OF EXAM: 05/18/2023 CLINICAL INDICATION:Male, 77 years old with history of C85.98; TECHNIQUE: Following the intravenous administration of 12.7 by mCi of F-18 FDG, whole body images a re performed from the skull base to the midthigh. Images are reviewed on the computer in the coronal , axial, and sagittal planes. Reconstructed rotating images are created on independent workstation a nd reviewed on the computer. A non-contrast CT is performed in conjunction with the PET scan. Gluco se level 84 mg/dL CT DLP: 408 mGycm, Automated exposure control for dose reduction was used. COMPARISON: CT None, PET/CT 11/24/2022, FINDINGS: Mediastinal SUV mean is 1.4. Hepatic parenchyma SUV mean is 1.9. SKULL BASE AND NECK: No suspicious radiotracer activity. CHEST, MEDIASTINUM, AND HILAR REGION: No suspicious radiotracer activity. ABDOMEN AND PELVIS: No suspicious radiotracer activity. OSSEOUS STRUCTURES: No suspicious radiotracer activity. OTHER CT: Atherosclerosis of the arterial vasculature including the carotid bifurcations and coronary arteries. There is a large hiatal hernia containing gastric pull-through and some bowel. Nonobstruct ing bilateral renal calculi. Left fat-containing inguinal hernia. Mild bladder wall thickening anteri shirley unchanged from prior. No abnormal IMPRESSION: No suspicious radiotracer activity.
== END | disposition home or self-care (01) ==
LOC: RADPETMAIN 09:53
PROVIDERS: ATTEND Internal Medicine Hematology & Oncology
DX: C85.98 Non-Hodgkin lymphoma, unspecified, lymph nodes of multiple sites (principal)
CPT/HCPCS: 78815; A9552

== ENCOUNTER → 2023-12-20 | Outpatient (CLI) | payer MEDICARE ==
--- NOTE | 2023-12-21 01:09 | PE ---
EXAMINATION TYPE: PET CT fusion skull to thigh DATE OF EXAM: 12/20/2023 COMPARISON: Most recent prior PET/CT May 18, 2023 and older studies HISTORY: Esophageal cancer progress study. History of surgery May 2021. Completed chemotherapy in 2022. TECHNIQUE: Following the intravenous administration of 11.05 mCi of F-18 FDG, whole body images are performed from the skull base to the midthigh. Images are reviewed on the computer in the coronal, a xial, and sagittal planes. Reconstructed rotating images are created on independent workstation and reviewed on the computer. A localization and attenuation correction CT is performed in conjunction with the PET scan. Blood glucose level equals 110 SCAN: Subsequent Scan FINDINGS: SKULL BASE AND NECK: No new areas of abnormal hypermetabolic uptake. CHEST, MEDIASTINUM, AND HILAR REGION: Surgical changes from total esophagectomy and gastric pull up p rocedure are redemonstrated. No new areas of abnormal hypermetabolic uptake are seen. ABDOMEN AND PELVIS: Normal excretion redemonstrated. No new areas of abnormal hypermetabolic uptake a re noted. OSSEOUS STRUCTURES: No new areas of abnormal hypermetabolic uptake. OTHER CT: Moderate to severe calcified plaque left carotid bulb level is redemonstrated. Severe three -vessel coronary artery calcification is redemonstrated. There is likely a stent in the right coronar y artery. Small degree of subareolar gynecomastia is redemonstrated. Moderate wall thickening in the poorly distended urinary bladder is noted. Moderate-size fat-containing left inguinal hernia redemons trated. IMPRESSION: No new suspicious hypermetabolic uptake to suggest active neoplastic recurrence. No signi ficant change from most recent prior PET/CT.
== END | disposition home or self-care (01) ==
LOC: RADPETMAIN 14:09
PROVIDERS: ATTEND Internal Medicine
DX: C15.5 Malignant neoplasm of lower third of esophagus (principal)
CPT/HCPCS: 78815; A9552

== ENCOUNTER 2024-04-25 09:53 | Day surgery (SDC) | payer MEDICARE ==
[2024-04-22 14:54] VITALS: BMI 25.0
[~2024-04-25 09:53] MED LIST changes: -LACTATED RINGERS 1,000 ML IV SCH
[2024-04-25] MEDS: IV FLUID CONTINUATION 1,000 ML IV ONE (10:27)
[2024-04-25 10:42] VITALS: RESP 16; TEMP 98
[2024-04-25 10:42] LABS: Glucose,Whole Blood 93 mg/dL (70-110)
[2024-04-25] MEDS: LACTATED RINGERS 1,000 ML IV SCH (10:42)
[2024-04-25] MEDS ORDERED: PROPOFOL 10 MG/ML 20 ML VIAL IV ONE (11:40)
--- NOTE | 2024-04-25 11:52 | P.PCN ---
Date of Procedure: 04/25/24 Procedure(s) Performed: BRIEF HISTORY: Patient is a 78-year-old, pleasant, white male scheduled for an upper endoscopy as a part of evaluation of intermittent dysphagia to solids. He was diagnosed with esophageal cancer in May 2021 and is status post neoadjuvant chemo followed by surgery with distal esophagectomy and gastric pull-through. He subsequently developed anastomotic stricture for which she underwent an upper endoscopy with dilation in January 2023. Lately has been having dysphagia to solids as well as passive regurgitation.. PROCEDURE PERFORMED: Esophagogastroduodenoscopy. PREOPERATIVE DIAGNOSIS: History of esophageal cancer/intermittent dysphagia to solids IV sedation per anesthesia. PROCEDURE: After informed consent was obtained, the patient was brought into the endoscopy unit. IV sedation was administered by Anesthesia under continuous monitoring. Initially the Olympus GIF-140 video endoscope was inserted into the mouth. Esophagus intubated without any difficulty. It was gradually advancedAnd there was an evidence of previous esophagectomy with gastroesophageal anas tomosis located at 25 cm from incisors and appeared patent with some narrowing noted. The scope was advanced to the anastomosis into the into the stomach and duodenum and carefully examined. The bulb and the second part of the duodenum appeared normal. The scope at this time was withdrawn to the stomach, adequately insufflated with air, and upon careful examination, mucosa of the antrum, body, appeared normal.There was large amount of retained food in the stomach suggestive of gastroparesis. The scope was then withdrawn into the esophagus. Anastomosis was located at 20 cm from the incisors. The Proximal toesophagus appeared normal. There were no erosions or ulcerations seen and the patient tolerated the procedure well. IMPRESSION: 1.Large amount of retained food in the stomach suggestive of gastroparesis. 2.Mild narrowing of the gastric esophageal anastomotis at 25 cm from the incisors.. RECOMMENDATIONS: The findings of this examination were discussed with the patient as well as his family. He was advised to continue with small frequent meals.Recommended repeat follow-up upper endoscopy in 2 years.
[2024-04-25 11:59] LABS: Glucose,Whole Blood 112 mg/dL (70-110)
[2024-04-25 12:21] VITALS: BP 146/84; PULSE 62
== END 2024-04-25 12:26 | disposition home or self-care (01) ==
LOC: ORWHC2ENDO 09:53
PROVIDERS: ATTEND Internal Medicine Gastroenterology
DX: R13.10 Dysphagia, unspecified (principal); I10 Essential (primary) hypertension; E78.5 Hyperlipidemia, unspecified; I48.91 Unspecified atrial fibrillation; G47.33 Obstructive sleep apnea (adult) (pediatric); E11.9 Type 2 diabetes mellitus without complications; F41.9 Anxiety disorder, unspecified; K21.9 Gastro-esophageal reflux disease without esophagitis; Z79.01 Long term (current) use of anticoagulants; Z79.899 Other long term (current) drug therapy; Z79.890 Hormone replacement therapy; Z79.4 Long term (current) use of insulin; Z85.01 Personal history of malignant neoplasm of esophagus
CPT/HCPCS: 43235; J2704

== ENCOUNTER → 2024-10-06 | Outpatient (CLI) | payer MEDICARE ==
--- NOTE | 2024-10-06 11:58 | CT ---
EXAMINATION TYPE: CT ChestAbdPelvis wo con CT DLP: 530.5 mGycm, Automated exposure control for dose reduction was used. DATE OF EXAM: 10/06/2024 11:46 AM COMPARISON: Multiple PET/CT with most recent 12/20/2023 CLINICAL INDICATION:Male, 78 years old with history of Z03.89 observation for mets; PHH, ESOPHAGEAL C A Technique: Multiple axial images of the chest, abdomen, and pelvis were obtained following without th e administration of intravenous or oral contrast. This limits evaluation. Two-dimensional coronal and sagittal reconstructions were obtained. Findings: CHEST: LUNGS/ PLEURA: No pleural effusion, pneumothorax, or focal consolidation. Calcified granuloma within the left lower lobe. No suspicious pulmonary nodule or mass. Bilateral lower lobe linear scarring and /or atelectasis. AIRWAY: Patent and unremarkable.. HEART: Mildly prominent in size.No pericardial effusion. Moderate to severe three-vessel coronary art chad calcification. Dense mitral annulus calcifications. MEDIASTINUM: No gross evidence of adenopathy. Postsurgical changes from esophagectomy with gastric pu ll-through. Calcified left hilar lymph nodes. VASCULATURE: No aortic aneurysm. Atherosclerotic calcification of the aorta and its branches. MUSCULOSKELETAL: Mild disc degeneration changes are present throughout the thoracolumbar spine. No ag gressive osseous lesion. SOFT TISSUES/LYMPH NODES: Bilateral gynecomastia. LOWER NECK: No significant findings. ABDOMEN: ABDOMEN LIVER: A few scattered calcified granulomas. GALLBLADDER AND BILE DUCTS: Unremarkable noncontrast appearance. No biliary ductal dilatation. PANCREAS: Fatty atrophy. SPLEEN: Scattered calcified granulomas. ADRENAL GLANDS: Unremarkable noncontrast appearance. KIDNEYS AND URETERS: No evidence of hydronephrosis. 3 nonobstructive right renal calculi with largest measuring up to 3 mm. Nonobstructive left renal 3 mm calculus. PELVIS BLADDER: Underdistended with some wall thickening anteriorly measuring up to 9 mm. No surrounding inf lammatory changes. REPRODUCTIVE: Coarse calcifications of the prostate gland are identified. ABDOMEN & PELVIS STOMACH AND BOWEL: Postsurgical changes from esophagectomy and gastric pull-through. No evidence of b owel obstruction. PERITONEUM: No evidence of pneumoperitoneum or free fluid. VASCULATURE: Moderate atherosclerotic calcifications are present throughout the abdominal aorta and i ts branches. No abdominal aortic aneurysm. MUSCULOSKELETAL: No acute osseous abnormalities. No aggressive osseous lesion. LYMPH NODES: No gross evidence for lymphadenopathy. SOFT TISSUE/ABDOMINAL WALL: Fat filled left inguinal hernia. Tiny fat filled umbilical hernia. IMPRESSION: 1. Postsurgical changes from esophagectomy and gastric pull-through without evidence for recurrence of metastatic disease within the chest, abdomen or pelvis. Evaluation is limited though due to the la ck of intravenous and oral contrast. 2. Wall thickening of the urinary bladder which may be due to under distention versus cystitis. Will elate with urinalysis. 3. Nonobstructive bilateral renal calculi. 4. Sequelae of prior granulomatous disease. [facility], , 10/06/2024 11:55 AM
== END | disposition home or self-care (01) ==
LOC: RADCTMAIN 11:10
PROVIDERS: ATTEND Internal Medicine Hematology & Oncology
DX: C15.5 Malignant neoplasm of lower third of esophagus (principal); N20.0 Calculus of kidney; K40.90 Unilateral inguinal hernia, without obstruction or gangrene, not specified as recurrent; I70.0 Atherosclerosis of aorta
CPT/HCPCS: 71250; 74176

== ENCOUNTER → 2025-04-06 | Outpatient (CLI) | payer MEDICARE ==
--- NOTE | 2025-04-06 12:32 | CT ---
EXAMINATION TYPE: CT ChestAbdPelvis wo con DATE OF EXAM: 04/06/2025 11:18 AM COMPARISON: None. CLINICAL INDICATION: Male, 79 years old with history of C15.5 MALIGNANT NEOPLASM OF LOWER THIRD OF ES OPHAG, esophageal ca TECHNIQUE: CT imaging performed with sagittal coronal reformats. Unenhanced CT of the chest ,abdomen and pelvis is performed. The lack of intravenous contrast limits evaluation of the solid and hollow viscera. CT DLP: 430.7 mGycm, Automated exposure control for dose reduction was used. Oral contrast: FINDINGS: CT Chest: LUNGS: Calcified granuloma left lower lobe noted. Mild fibrotic changes seen at the lung bases. The l ungs are clear and free of infiltrate or atelectasis. No pulmonary nodule or mass is detected. No p leural effusion. MEDIASTINUM: Thoracic aorta is of normal caliber. The heart is not enlarged. No evidence for media stinal mass or adenopathy. HEART: Mildly enlarged. No significant coronary artery calcifications. HILAR STRUCTURES: No evidence for mass. No hilar adenopathy is appreciated. OTHER: No significant abnormality. CONTRAST CT ABDOMEN AND PELVIS: LIVER/GB: No calcified gallstones. No space occupying hepatic lesion. Biliary tree is of normal ca liber. PANCREAS: No inflammation. No distinct mass. SPLEEN: No splenic enlargement. No lesion seen. ADRENALS: No nodule. No thickening. KIDNEYS/BLADDER: No hydronephrosis. No nephrolithiasis. No disctinct renal mass. BOWEL: Changes of gastric pull-through procedure with paraesophageal hiatal hernia. Debris is seen wi thin the gastric pull-through component. No recurrent mass appreciated. Normal appendix. Normal mellissa l caliber. No inflammation. GENITAL ORGANS: No gross abnormality. LYMPH NODES: No greater than 1cm abdominal or pelvic lymph nodes areappreciated. AORTA: No significant abnormality. OSSEOUS STRUCTURES: No significant abnormality is seen. OTHER: No significant additional abnormality is seen. IMPRESSION: 1. Changes of gastric pull-through procedure with paraesophageal hiatal hernia. Debris is seen within the gastric pull-through component. No recurrent mass appreciated. [facility], , 04/06/2025 12:30 PM
== END | disposition home or self-care (01) ==
LOC: RADCTMAIN 10:48
PROVIDERS: ATTEND Internal Medicine Hematology & Oncology
DX: C15.5 Malignant neoplasm of lower third of esophagus (principal); K44.9 Diaphragmatic hernia without obstruction or gangrene; C85.98 Non-Hodgkin lymphoma, unspecified, lymph nodes of multiple sites; Z71.3 Dietary counseling and surveillance
CPT/HCPCS: 71250; 74176